=== PATIENT | female | born 1960 | race African-American/Black ===

== ENCOUNTER 2017-11-08 03:46 | Emergency (ER) | payer BC, OTHER ==
[~2017-11-08] VITALS: Ht 167.6 cm; Wt 122.5 kg
[~2017-11-08 03:46] MED LIST: ADVAIR 250-501 EACH INH; ADVAIR 500-501 EACH INH; ALBUTEROL2.5 MG/0.1; COZAAR 50 MG TA50 M1 PO; DYRENIUM100 MG; FLEXERIL PO; GLUCOPHAGE500 MG PO; KEFLEX500 MG PO; LORTAB PO; NAPROSYN500 MG PO; NORCO 5-325 TA1 EACH PO; NOVOLIN 70100 UNIT/5; NOVOLOG MI100 UNIT/2 SUBQ; SIMVASTATIN10 MG PO; SPIRIVA INH; ULTRAM 50MG TAB50 MG PO
[2017-11-08 04:15] LABS: HEMATOCRIT 44.3 % (37.0-47.0); MCH 31.7 pg (26.0-34.0); MCHC 33.9 g/dL (28.0-37.0); MCV 93.5 fL (80.0-100.0); RBC 4.73 mil/uL (4.20-5.00); RDW 13.2 % (10.5-14.5)
[2017-11-08] MEDS ORDERED: PEPCID20 MG PO (04:20)
[2017-11-08 04:21] LABS: CREATININE 1.3 mg/dL (0.6-1.0); POTASSIUM 3.6 mmol/L (3.5-5.1)
[2017-11-08 04:27] LABS: ALBUMIN 3.5 g/dL (3.4-5.0); TOTAL BILIRUBIN 0.4 mg/dL (<0.1-1.0); TOTAL PROTEIN 7.6 g/dL (6.4-8.2)
[2017-11-08 04:29] LABS: APTT 27.5 Seconds (24.5-32.8); PROTIME 9.7 Seconds (9.3-11.4)
[2017-11-08 05:02] VITALS: BP 168/95
== END 2017-11-08 05:03 | disposition home or self-care (01) ==
LOC: ER 03:46
PROVIDERS: Emergency Medicine
DX: K92.1 Melena (principal); J44.9 Chronic obstructive pulmonary disease, unspecified; I10 Essential (primary) hypertension; E11.9 Type 2 diabetes mellitus without complications; F17.210 Nicotine dependence, cigarettes, uncomplicated